=== PATIENT | male | born 1970 | race Caucasian/White ===

== ENCOUNTER 2018-04-28 20:06 | Emergency (ER) | payer OTHER ==
[~2018-04-28] VITALS: Ht 177.8 cm; Wt 79.4 kg
[2018-04-28] MEDS ORDERED: FAMOTIDINE. 20 MG/2 ML VIAL IV ONE ×2 (20:30→20:43)
[2018-04-28] MEDS ORDERED: EPINEPHRINE 1 MG/1 ML AMP SQ ONE (20:30)
[2018-04-28] MEDS ORDERED: methylPREDNISolone SOD SUCC 125 MG/2 ML VIAL IV ONE (20:30)
[2018-04-28] MEDS ORDERED: diphenhydrAMINE 50 MG/1 ML VIAL IV ONE (20:30)
[2018-04-28] MEDS ORDERED: diphenhydrAMINE 50 MG/1 ML VIAL ONE (20:42)
[2018-04-28] MEDS ORDERED: EPINEPHRINE 1 MG/1 ML AMP ONE (20:43)
[2018-04-28] MEDS ORDERED: methylPREDNISolone SOD SUCC 125 MG/2 ML VIAL ONE (20:43)
--- NOTE | 2018-04-28 20:45 | NUR ---
Pt. ambulated into ED w/ c/o 04/13 pain to the back of throat x 5 days, pt. reported having had a swollen uvula 5 days prior and having a dry and sore throat, denies F/C/N/V/SOB/CP/GRIFFIN,
[2018-04-28 20:57] VITALS: BP 152/80
--- NOTE | 2018-04-28 21:30 | NUR ---
Pt. requests water - swallowed w/ some c/o dryness
--- NOTE | 2018-04-28 22:10 | NUR ---
Patient discharged to home in stable conditon. Written and verbal after care instructions given. Patient verbalizes understanding of instructions. Pt. d/c w/ prescription per MD order, d/c papers signed, all belongings w/ pt., ID/IV removed, ambulated off unit w/ steady gait, NAD,
== END 2018-04-28 22:34 | disposition home or self-care (01) ==
LOC: ER 20:06
DX: K12.2 Cellulitis and abscess of mouth (principal); T78.3XXA Angioneurotic edema, initial encounter; E78.5 Hyperlipidemia, unspecified; K21.9 Gastro-esophageal reflux disease without esophagitis; F17.200 Nicotine dependence, unspecified, uncomplicated
CPT/HCPCS: 96372; 96374; 96375; 99283; J0171; J1200; J2930; J3490; A4663